=== PATIENT | male | born 1955 | race Caucasian/White ===

== ENCOUNTER 2019-11-12 13:42 | Outpatient (CLI) | payer BC ==
[~2019-11-12 13:42] MED LIST: Magnevist 469MG/ML 20 ML VIAL ONE
--- NOTE | 2019-11-14 10:45 | MRI ---
MRI PELVIS/PROSTATE WITH AND WITHOUT IV CONTRAST: HISTORY: Prostate cancer. Radiation treatment planning. Pre-biopsy PSA was 9.28. TECHNIQUE: Multiplanar, multisequence MRI of the pelvis was performed with and without IV contrast using the pro state protocol. Preview was also performed at an independent 3D work station. FINDINGS: The prostate measures 4.5 x 3.5 x 3.8 cm with a volume of 31 mL. No focal abnormal area of diffusion restriction is seen in the peripheral zone to suggest a malignant process. The transition zone demonstrates no lentiform area of abnormally decreased T2 signal to suggest a mal ignant process. No focal arterial enhancing mass is seen. The prostatic capsule is intact. The seminal vesicles are i ntact. No pelvic lymphadenopathy is seen. The pelvic sidewall is normal. No abnormal areas of signal replacement are seen on the T2 weighted sequences of the pelvis to suggest osseous metastatic disease . IMPRESSION: BI-RADS 2 - low (clinically significant prostate cancer is unlikely to be present). This exam was interpreted in consultation with Drs. Tiago Cordero and Reno Rodriguez who concur. POS: STEVEN
== END 2019-11-12 13:43 | disposition home or self-care (01) ==
LOC: TBSIIMAG 13:42
PROVIDERS: ATTEND Radiology Radiation Oncology
DX: C61 Malignant neoplasm of prostate (principal)
CPT/HCPCS: 72197; 82565; A9579